=== PATIENT | female | born 1995 | race Caucasian/White ===

== ENCOUNTER 2017-02-06 02:43 | Emergency (ER) | payer OTHER ==
[~2017-02-06] VITALS: Ht 165.1 cm; Wt 68.2 kg
[2017-02-06 02:45] VITALS: TEMP 99.1
[2017-02-06] MEDS ORDERED: ULTRAM 50MG TAB50 MG PO (03:58)
[2017-02-06] MEDS ORDERED: PERCOCET 325 MG1 TA2 PO (03:58)
[2017-02-06 04:42] VITALS: BP 110/56; PULSE 74
== END 2017-02-06 04:43 | disposition home or self-care (01) ==
LOC: COL.ER 02:43
DX: S42.332A Displaced oblique fracture of shaft of humerus, left arm, initial encounter for closed fracture (principal); W18.39XA Other fall on same level, initial encounter; Y92.830 Public park as the place of occurrence of the external cause
CPT/HCPCS: J1170; J3010